=== PATIENT | male | born 1965 | race African-American/Black ===

== ENCOUNTER 2017-06-17 14:52 | Inpatient (IN) | payer OTHER ==
[2017-06-17 16:26] VITALS: BMI 25.9
--- NOTE | 2017-06-17 23:07 | HP ---
COWS - Scale Resting Pulse: 0= [place] 80 or Below Sweatin= Chills/Flushing Restless Observation: 1= Difficult to Sit Still Pupil Size: 0= Normal to Room Light Bone or Joint Aches: 4=Acute Joint/Muscle Pain Runny Nose/ Eye Tearin= Runny Nose/Eyes GI Upset > 30mins: 2= Nausea/Diarrhea (diarrhea x 3) Tremor Observation: 2= Slight Tremor Visible Yawning Observation: 0= None Anxiety or Irritability: 4=Extreme Anxiety Goose Flesh Skin: 0=Smooth Skin COWS Score: 16 CIWA Score - CIWA Score Nausea/Vomitin Muscle Tremors: 3 Anxiety: 4-Mod. Anxious/Guarded Agitation: 0-Normal Activity Paroxysmal Sweats: 3 Orientation: 0-Oriented Tacttile Disturbances: 0-None Auditory Disturbances: 0-None Visual Disturbances: 0-None Headache: 4-Moderately Severe CIWA-Ar Total Score: 16 Admission ROS S - HPI Chief Complaint: Heroin and alcohol withdrawal symptoms Allergies/Adverse Reactions: Allergies Allergy/AdvReac Type Severity Reaction Status Date / Time banana Allergy Mild Nausea Verified 06/17/17 17:42 Fish Containing Products Allergy Verified 06/17/17 17:42 mayonnaise Allergy Verified 06/17/17 17:42 History of Present Illness: 51 years old male with a long history of heroine and alcohol dependence is seeking admission to detox. Patient has been in previous detox at [facility] and reports insignificant period of sobriety. He denies past medical history and suicidal ideation at this time. Exam Limitations: No Limitations - Ebola screening Have you traveled outside of the country in the last 21 days: No (N) Have you had contact with anyone from an Ebola affected area: No Have you been sick,other than usual withdrawal symptoms: No Do you have a fever: No - Review of Systems Constitutional: Loss of Appetite, Malaise, Night Sweats, Changes in sleep EENT: reports: No Symptoms Reported, Other (use glasses) Respiratory: reports: No Symptoms reported Cardiac: reports: No Symptoms Reported GI: reports: Poor Appetite, Poor Fluid Intake, Abdominal cramping : reports: No Symptoms Reported Musculoskeletal: reports: Back Pain, Muscle Pain Integumentary: reports: Dryness, Flushing Neuro: reports: Tingling, Tremors Endocrine: reports: No Symptoms Reported Hematology: reports: No Symptoms Reported Psychiatric: reports: Orientated x3, Anxious Other Systems: Reviewed and Negative Patient History - Patient Medical History Hx Anemia: No Hx Asthma: No Hx Chronic Obstructive Pulmonary Disease (COPD): No Hx Cancer: No Hx Cardiac Disorders: No Hx Congestive Heart Failure: No Hx Hypertension: No Hx Hypercholesterolemia: No HX Cerebrovascular Accident: No Hx Seizures: No Hx Dementia: No Hx Diabetes: No Hx Gastrointestinal Disorders: No Hx Liver Disease: No Hx Genitourinary Disorders: No Hx Sexually Transmitted Disorders: No Hx Renal Disease (ESRD): No Hx Thyroid Disease: No Hx Human Immunodeficiency Virus (HIV): No (Negative 2014) Hx Hepatitis C: No Hx Depression: No Hx Suicide Attempt: No Hx Bipolar Disorder: No Hx Schizophrenia: No - Patient Surgical History Past Surgical History: Yes Hx Neurologic Surgery: No Hx Cataract Extraction: No Hx Cardiac Surgery: No Hx Lung Surgery: No Hx Abdominal Surgery: No Hx Appendectomy: No Hx Cholecystectomy: No Hx Genitourinary Surgery: No Hx Orthopedic Surgery: Yes (SURGERY ON HIS BACK ABOUT 5 YEARS AGO) Anesthesia Reaction: No - PPD History Previous Implant?: No Documented Results: Negative w/o proof Implanted On Prior [facility] Admission?: No PPD to be Administered?: Yes - Reproductive History Patient is a Female of Child Bearing Age (11 -55 yrs old): No (MALE) - Smoking Cessation Smoking history: Current every day smoker Have you smoked in the past 12 months: Yes Aproximately how many cigarettes per day: 20 Hx Chewing Tobacco Use: No Initiated information on smoking cessation: Yes 'Breaking Loose' booklet given: 06/17/17 - Substance & Tx. History Hx Alcohol Use: Yes Hx Substance Use: Yes Substance Use Type: Alcohol, Cocaine, Heroin Hx Substance Use Treatment: Yes ([facility]) - Substances Abused Alcohol Route: Oral Frequency: Daily Amount used: 3 PINTS OF VODKA AND GIN, Age of first use: 19 Date of Last Use: 06/17/17 Heroin Route: Inhalation Frequency: Daily Amount used: 2 BUNDLES DAILY Age of first use: 31 Date of Last Use: 06/17/17 Cocaine Route: Smoking Frequency: Daily Amount used: 6-7 BOTTLES DAILY Age of first use: 22 Date of Last Use: 06/16/17 Family Disease History - Family Disease History Family History: Denies Admission Physical Exam BHS - Vital Signs Vital Signs: Vital Signs - 24 hr 06/17/17 16:24 Temperature 97.8 F Pulse Rate 75 Respiratory 20 Rate Blood Pressure 149/78 - Physical General Appearance: Yes: Moderate Distress HEENTM: Yes: EOMI, Normal Voice, Pale Conjunctivae L Respiratory: Yes: Lungs Clear, Normal Breath Sounds, No Respiratory Distress Neck: Yes: Supple Breast: Yes: Breast Exam Deferred Cardiology: Yes: Regular Rhythm, Regular Rate, S1, S2 Abdominal: Yes: Normal Bowel Sounds Genitourinary: Yes: Within Normal Limits Back: Yes: Normal Inspection Musculoskeletal: Yes: Back pain, Muscle Pain Extremities: Yes: Tremors Neurological: Yes: Alert, Normal Mood/Affect Integumentary: Yes: Dry Lymphatic: Yes: Within Normal Limits - Diagnostic (1) Alcohol dependence with uncomplicated withdrawal Current Visit: Yes Status: Chronic (2) Nicotine dependence Current Visit: Yes Status: Chronic Qualifiers: Nicotine product type: cigarettes (3) Opioid dependence with withdrawal Current Visit: Yes Status: Chronic Cleared for Admission [facility] - Detox or Rehab [facility] Level of Care: Medically Managed Detox Regimen/Protocol: Methadone/Librium [facility] Breath Alcohol Content Breath Alcohol Content: 0.050 Urine Drug Screen - Results Drug Screen Negative: No Urine Drug Screen Results: MEY-Cocaine, OPI-Opiates
[2017-06-18] MEDS ORDERED: MAGNESIUM HYDROX 2400MG/30ML ORAL SUSPENSION 30 ML CUP PO PRN (01:54)
[2017-06-18] MEDS ORDERED: LOPERAMIDE HCL 2 MG CAPSULE PO PRN (01:54)
[2017-06-18] MEDS ORDERED: MENTHOL/PHENOL 1 EACH UD MM PRN (01:54)
[2017-06-18] MEDS ORDERED: guaiFENesin/D-METHORPHAN HB 10 ML UNIT-DOSE CUPS PO PRN (01:54)
[2017-06-18] MEDS ORDERED: METHADONE HCL 10 MG TABLET (FOR DETOX USE ONLY) PO ONE ×3 (01:54→22:00)
[2017-06-18] MEDS ORDERED: ACETAMINOPHEN 325 MG TABLET (FP) PO PRN (01:54)
[2017-06-18] MEDS ORDERED: MAGNESIUM CITRATE 300 ML BOTTLE PO PRN (01:54)
[2017-06-18] MEDS ORDERED: NICOTINE POLACRILEX 2 MG GUM BC PRN (01:54)
[2017-06-18] MEDS ORDERED: MAG HYDROX/AL HYDROX/SIMETH 30 ML UNIT-DOSE CUP PO PRN (01:54)
[2017-06-18] MEDS ORDERED: P-EPHED 60MG/TRIPROLIDI 2.5MG TABLET PO PRN (01:54)
[2017-06-18] MEDS: chlordiazePOXIDE HCL 25 MG CAPSULE PO PRN (02:15)
[2017-06-18] MEDS: chlordiazePOXIDE HCL 25 MG CAPSULE PO SCH ×4 (05:27→22:22)
--- NOTE | 2017-06-18 09:22 | EKG ---
Test Reason : Blood Pressure : / mmHG Vent. Rate : 052 BPM Atrial Rate : 058 BPM P-R Int : 182 ms QRS Dur : 100 ms QT Int : 430 ms P-R-T Axes : 033 048 036 degrees QTc Int : 399 ms SINUS BRADYCARDIA WITH SINUS ARRHYTHMIA VOLTAGE CRITERIA FOR LEFT VENTRICULAR HYPERTROPHY ABNORMAL ECG NO PREVIOUS ECGS AVAILABLE Confirmed by NATALIE MERINO MD ([id number]) on 06/18/2017 9:22:12 AM Referred By: Confirmed By:NATALIE MERINO MD
[2017-06-18] MEDS ORDERED: CYCLOBENZAPRINE HCL 10 MG TABLET (FP) PO PRN (10:06)
[2017-06-18] MEDS: PRENATAL VITAMINS W/ FOLIC ACID TABLET (FP) PO SCH (10:10)
[2017-06-18] MEDS: NICOTINE 14 MG/24 HOURS TOPICAL PATCH TD SCH (10:11)
[2017-06-18] MEDS: cloNIDine HCL 0.1 MG TABLET PO SCH ×2 (10:20→22:22)
--- NOTE | 2017-06-18 13:20 | PN ---
[facility] CIWA - CIWA Score Nausea/Vomitin Muscle Tremors: 3 Anxiety: 3 Agitation: 2 Paroxysmal Sweats: 1-Minimal Palms Moist Orientation: 0-Oriented Tacttile Disturbances: 1-Very Mild Itch/Numbness Auditory Disturbances: 1-Very Mild Visual Disturbances: 0-None Headache: 2-Mild CIWA-Ar Total Score: 16 BHS COWS - Scale Resting Pulse: 0= [place] 80 or Below Sweatin= Chills/Flushing Restless Observation: 3= Extraneous Movement Pupil Size: 1= Pupils >than Normal Bone or Joint Aches: 2= Severe Diffuse Aches Runny Nose/ Eye Tearin= Nasal Congestion GI Upset > 30mins: 2= Nausea/Diarrhea Tremor Observation of Outstretched Hands: 2= Slight Tremor Visible Yawning Observation: 2= >3x During Session Anxiety or Irritability: 2=Irritable/Anxious Goose Flesh Skin: 0=Smooth Skin COWS Score: 16 S Progress Note (SOAP) Subjective: ALERT,IRRITABLE,ANXIOUS,INTERRUPTED SLEEP,TREMOR,PAIN IN THE BODY AND BACK, Objective: 06/18/17 13:18 Vital Signs Temperature 98.9 F 06/18/17 09:22 Pulse Rate 46 L 06/18/17 09:22 Respiratory Rate 20 06/18/17 09:22 Blood Pressure 172/100 06/18/17 09:22 O2 Sat by Pulse Oximetry (%) EKG SINUS BRADYCARDIA 42/MIN,PROLONG QT 454/379 LVH NO CHEST PAIN,NO SOB,NO DIZZINESS LABS PENDING Assessment: 06/18/17 13:20 WITHDRAWAL SYMPTOM Plan: CONTINUE DETOX
--- NOTE | 2017-06-18 15:38 | EKG ---
Test Reason : Blood Pressure : / mmHG Vent. Rate : 042 BPM Atrial Rate : 042 BPM P-R Int : 188 ms QRS Dur : 104 ms QT Int : 454 ms P-R-T Axes : 031 039 029 degrees QTc Int : 379 ms MARKED SINUS BRADYCARDIA MINIMAL VOLTAGE CRITERIA FOR LVH, MAY BE NORMAL VARIANT ABNORMAL ECG WHEN COMPARED WITH ECG OF 18-JUN-2017 02:16, NO SIGNIFICANT CHANGE WAS FOUND Confirmed by WILBER FIGUEROA, NATALIE ([id number]) on 06/18/2017 3:37:49 PM Referred By: Confirmed By:NATALIE MERINO MD
[2017-06-18] MEDS ORDERED: MELATONIN 5 MG TABLETS PO PRN (22:00)
[2017-06-18] MEDS: THIAMINE HCL 100 MG TABLET (FP) PO SCH (22:22)
[2017-06-19] MEDS: chlordiazePOXIDE HCL 25 MG CAPSULE PO SCH ×4 (05:19→22:07)
[2017-06-19] MEDS ORDERED: METHADONE HCL 10 MG TABLET (FOR DETOX USE ONLY) PO SCH (10:00)
[2017-06-19 10:14] LABS: HEMATOCRIT 36.2 % (35.4-49); HEMOGLOBIN 12.4 GM/dL (11.7-16.9); MCH 30.5 pg (25.7-33.7); MCHC 34.2 g/dl (32.0-35.9); MEAN CELL VOLUME 89.4 fl (80-96); MEAN PLT VOLUME 8.8 fl (7.5-11.1); PLATELET COUNT 149 K/MM3 (134-434); RBC 4.05 M/mm3 (4.00-5.60); RDW 14.2 % (11.9-15.9); WHITE BLOOD COUNT 5.5 K/mm3 (4.0-10.0)
[2017-06-19 10:22] LABS: ALBUMIN 3.1 g/dl (3.4-5.0); ANION GAP 6 (8-16); BILIRUBIN,TOTAL 0.2 mg/dL (0.2-1.0); BLOOD UREA NITROGEN 10 mg/dL (7-18); CALCIUM 8.7 mg/dL (8.5-10.1); CHLORIDE 102 mmol/L (98-107); CO2 31 mmol/L (21-32); GLUCOSE,RANDOM 93 mg/dL (74-106); POTASSIUM 3.5 mmol/L (3.5-5.1); SGOT/AST 19 U/L (15-37); SGPT/ALT 21 U/L (12-78); SODIUM 139 mmol/L (136-145)
[2017-06-19 10:23] LABS: ALK PHOS 66 U/L (45-117); CREATININE 0.8 mg/dL (0.7-1.3); TOT PROT 6.7 g/dl (6.4-8.2)
[2017-06-19] MEDS ORDERED: ONDANSETRON *ODT* 4 MG TABLET SL PRN (10:41)
[2017-06-19] MEDS: cloNIDine HCL 0.1 MG TABLET PO SCH ×2 (10:49→22:07)
[2017-06-19] MEDS: PRENATAL VITAMINS W/ FOLIC ACID TABLET (FP) PO SCH (10:49)
[2017-06-19] MEDS: NICOTINE 14 MG/24 HOURS TOPICAL PATCH TD SCH (10:50)
[2017-06-19 13:04] LABS: URINE APPEARANCE CLEAR; URINE BILIRUBIN NEGATIVE (<2.0 mg/dL); URINE COLOR YELLOW; URINE GLUCOSE (UA) 1+ (NEGATIVE); URINE KETONE NEGATIVE (NEGATIVE); URINE LEUK ESTERASE NEGATIVE (NEGATIVE); URINE NITRITE NEGATIVE (NEGATIVE); URINE PROTEIN NEGATIVE (NEGATIVE); URINE UROBILINOGEN NEGATIVE mg/dL (0.2-1.0)
--- NOTE | 2017-06-19 13:42 | PN ---
S CIWA - CIWA Score Nausea/Vomitin Muscle Tremors: 4-Moderate,w/Arms Extend Anxiety: 3 Agitation: 3 Paroxysmal Sweats: 3 Orientation: 0-Oriented Tacttile Disturbances: 1-Very Mild Itch/Numbness Auditory Disturbances: 0-None Visual Disturbances: 0-None Headache: 1-Very Mild CIWA-Ar Total Score: 18 BHS COWS - Scale Resting Pulse: 0= [place] 80 or Below Sweatin= Chills/Flushing Restless Observation: 3= Extraneous Movement Pupil Size: 0= Normal to Room Light Bone or Joint Aches: 2= Severe Diffuse Aches Runny Nose/ Eye Tearin= Runny Nose/Eyes GI Upset > 30mins: 2= Nausea/Diarrhea Tremor Observation of Outstretched Hands: 2= Slight Tremor Visible Yawning Observation: 1= 1-2x During Session Anxiety or Irritability: 2=Irritable/Anxious Goose Flesh Skin: 0=Smooth Skin COWS Score: 15 S Progress Note (SOAP) Subjective: Stomach ache, chills, tremor, n/v/d Objective: 06/19/17 13:38 Last Vital Signs Temp Pulse Resp BP Pulse Ox 97.7 F 49 L 16 114/67 06/19/17 09:44 06/19/17 09:44 06/19/17 09:44 06/19/17 09:44 Noted with bradycardia (patient stated he was athletic until 1-2 years ago and always have low pulse, denies feeling lightheaded or dizzy) Laboratory Tests 06/19/17 06/19/17 06/19/17 08:00 08:00 08:00 WBC 5.5 RBC 4.05 Hgb 12.4 Hct 36.2 MCV 89.4 MCH 30.5 MCHC 34.2 RDW 14.2 Plt Count 149 MPV 8.8 Sodium 139 Potassium 3.5 Chloride 102 Carbon Dioxide 31 Anion Gap 6 L BUN 10 Creatinine 0.8 Creat Clearance w eGFR > 60 Random Glucose 93 Calcium 8.7 Total Bilirubin 0.2 AST 19 ALT 21 Alkaline Phosphatase 66 Total Protein 6.7 Albumin 3.1 L Urine Color Urine Appearance Urine pH Ur Specific [place] Urine Protein Urine Glucose (UA) Urine Ketones Urine Blood Urine Nitrite Urine Bilirubin Urine Urobilinogen Ur Leukocyte Esterase RPR Titer HIV 1&2 Antibody Screen Negative HIV P24 Antigen Negative 06/19/17 06/19/17 08:00 08:15 WBC RBC Hgb Hct MCV MCH MCHC RDW Plt Count MPV Sodium Potassium Chloride Carbon Dioxide Anion Gap BUN Creatinine Creat Clearance w eGFR Random Glucose Calcium Total Bilirubin AST ALT Alkaline Phosphatase Total Protein Albumin Urine Color Yellow Urine Appearance Clear Urine pH 6.0 Ur Specific [place] 1.018 Urine Protein Negative Urine Glucose (UA) 1+ H Urine Ketones Negative Urine Blood Negative Urine Nitrite Negative Urine Bilirubin Negative Urine Urobilinogen Negative Ur Leukocyte Esterase Negative RPR Titer Nonreactive HIV 1&2 Antibody Screen HIV P24 Antigen Labs reviewed Assessment: 06/19/17 13:42 Withdrawal symptoms Noted to be bradycardic Plan: Continue detox Bradycardia: asymptomatic, encouraged to ambulate more and drink more water, follow up with your PCP post discharge
--- NOTE | 2017-06-19 14:19 | CONSULT ---
[facility] Psychiatric Consult - Data Date of interview: 06/19/17 Admission source: Self-referred Identifying data: Patient is a 51 y/o single unemployed, homeless, SSI recipient Substance Abuse History: He has a long standing history of ETOH, Heroin , and several past [facility] treatment. ( see counselor note for more detailed substance use disorder history) Medical History: Denies active medical problem, past back surgery 2012 Psychiatric History: Denies prior psychiatric history, denies depression, psychosis, mood swings or suicide ideation Physical/Sexual Abuse/Trauma History: Denies history of abuse or trauma Mental Status Exam - Mental Status Exam Alert and Oriented to: Place, Person Cognitive Function: Grossly Intact Patient Appearance: Well Groomed Mood: Euthymic Affect: Appropriate Patient Behavior: Cooperative Speech Pattern: Clear Voice Loudness: Normal Thought Process: Intact Thought Disorder: Not Present Hallucinations: None Suicidal Ideation: None Homicidal Ideation: None Insight/Judgement: Poor Sleep: Poorly Appetite: Fair Muscle strength/Tone: Normal Gait/Station: Normal Psychiatric Findings - Problem List ([place] 1, 2,3) (1) Alcohol dependence with uncomplicated withdrawal Current Visit: Yes Status: Acute (2) Opioid dependence with withdrawal Current Visit: Yes Status: Acute (3) Cocaine dependence Current Visit: Yes Status: Acute (4) Nicotine dependence Current Visit: Yes Status: Chronic Qualifiers: Nicotine product type: cigarettes
[2017-06-19] MEDS: THIAMINE HCL 100 MG TABLET (FP) PO SCH (22:07)
[2017-06-19] MEDS: IBUPROFEN 400 MG TABLET (FP) PO PRN (22:14)
[2017-06-20] MEDS: chlordiazePOXIDE 5 MG CAPSULE PO SCH ×4 (05:24→22:06)
--- NOTE | 2017-06-20 09:24 | PN ---
S Progress Note (SOAP) Subjective: ALERT,IRRITABLE,ANXIOUS,INTERRUPTED SLEEP,PAIN IN THE BODY AND BACK Objective: 06/20/17 09:23 Vital Signs Temperature 96.1 F L 06/20/17 07:12 Pulse Rate 44 L 06/20/17 07:12 Respiratory Rate 20 06/20/17 07:12 Blood Pressure 152/84 06/20/17 07:12 O2 Sat by Pulse Oximetry (%) Assessment: 06/20/17 09:24 WITHDRAWAL SYMPTOM Plan: CONTINE DETOX
[2017-06-20] MEDS: METHADONE HCL 5 MG TABLET (FOR DETOX USE ONLY) PO SCH (10:16)
[2017-06-20] MEDS: cloNIDine HCL 0.1 MG TABLET PO SCH ×2 (10:16→22:06)
[2017-06-20] MEDS: PRENATAL VITAMINS W/ FOLIC ACID TABLET (FP) PO SCH (10:16)
[2017-06-20] MEDS: NICOTINE 14 MG/24 HOURS TOPICAL PATCH TD SCH (10:17)
[2017-06-20] MEDS: chlordiazePOXIDE HCL 25 MG CAPSULE PO PRN (13:29)
[2017-06-20] MEDS: IBUPROFEN 400 MG TABLET (FP) PO PRN (14:27)
[2017-06-20] MEDS ORDERED: MELATONIN 5 MG TABLETS PO SCH (22:00)
[2017-06-20] MEDS: THIAMINE HCL 100 MG TABLET (FP) PO SCH (22:06)
[2017-06-21] MEDS: chlordiazePOXIDE HCL 10 MG CAPSULE PO SCH ×2 (05:14→10:58)
[2017-06-21 08:46] VITALS: BP 121/74; PULSE 66; TEMP 96.7
--- NOTE | 2017-06-21 10:16 | PN ---
S Progress Note (SOAP) Subjective: ALERT,IRRITABLE,ANXIOUS,INTERRUPTED SLEEP Objective: 06/21/17 10:15 Vital Signs Temperature 96.7 F L 06/21/17 08:46 Pulse Rate 66 06/21/17 08:46 Respiratory Rate 18 06/21/17 08:46 Blood Pressure 121/74 06/21/17 08:46 O2 Sat by Pulse Oximetry (%) Assessment: 06/21/17 10:15 WITHDRAWAL SYMPTOM Plan: CONTINUE DETOX,DISCHARGE IN AM
[2017-06-21] MEDS: cloNIDine HCL 0.1 MG TABLET PO SCH (10:58)
[2017-06-21] MEDS: METHADONE HCL 5 MG TABLET (FOR DETOX USE ONLY) PO SCH (10:58)
[2017-06-21] MEDS: PRENATAL VITAMINS W/ FOLIC ACID TABLET (FP) PO SCH (10:59)
[2017-06-21] MEDS: NICOTINE 14 MG/24 HOURS TOPICAL PATCH TD SCH (10:59)
--- NOTE | 2017-06-21 12:54 | PN ---
[facility] Progress Note Note: patient is stable for discharge today,would like to be discharged
--- NOTE | 2017-06-21 12:58 | DS ---
[facility] Detox Discharge Summary Admission Date: 06/17/17 Discharge Date: 06/21/17 - History Present History: Alcohol Dependence, Cocaine Dependence, Opioid Dependence Pertinent Past History: stable for discharge today,follow up with after care program as arrangement - Physical Exam Results Vital Signs: Vital Signs Temperature 96.7 F L 06/21/17 08:46 Pulse Rate 66 06/21/17 08:46 Respiratory Rate 18 06/21/17 08:46 Blood Pressure 121/74 06/21/17 08:46 O2 Sat by Pulse Oximetry (%) Pertinent Admission Physical Exam Findings: withdrawal sign and symptom Vital Signs Temperature 96.7 F L 06/21/17 08:46 Pulse Rate 66 06/21/17 08:46 Respiratory Rate 18 06/21/17 08:46 Blood Pressure 121/74 06/21/17 08:46 O2 Sat by Pulse Oximetry (%) Laboratory Last Values WBC 5.5 K/mm3 (4.0-10.0) 06/19/17 08:00 RBC 4.05 M/mm3 (4.00-5.60) 06/19/17 08:00 Hgb 12.4 GM/dL (11.7-16.9) 06/19/17 08:00 Hct 36.2 % (35.4-49) 06/19/17 08:00 MCV 89.4 fl (80-96) 06/19/17 08:00 MCH 30.5 pg (25.7-33.7) 06/19/17 08:00 MCHC 34.2 g/dl (32.0-35.9) 06/19/17 08:00 RDW 14.2 % (11.9-15.9) 06/19/17 08:00 Plt Count 149 K/MM3 (134-434) 06/19/17 08:00 MPV 8.8 fl (7.5-11.1) 06/19/17 08:00 Sodium 139 mmol/L (136-145) 06/19/17 08:00 Potassium 3.5 mmol/L (3.5-5.1) 06/19/17 08:00 Chloride 102 mmol/L (98-107) 06/19/17 08:00 Carbon Dioxide 31 mmol/L (21-32) 06/19/17 08:00 Anion Gap 6 (8-16) L 06/19/17 08:00 BUN 10 mg/dL (7-18) 06/19/17 08:00 Creatinine 0.8 mg/dL (0.7-1.3) 06/19/17 08:00 Creat Clearance w eGFR > 60 (>60) 06/19/17 08:00 Random Glucose 93 mg/dL (74-106) 06/19/17 08:00 Calcium 8.7 mg/dL (8.5-10.1) 06/19/17 08:00 Total Bilirubin 0.2 mg/dL (0.2-1.0) 06/19/17 08:00 AST 19 U/L (15-37) 06/19/17 08:00 ALT 21 U/L (12-78) 06/19/17 08:00 Alkaline Phosphatase 66 U/L (45-117) 06/19/17 08:00 Total Protein 6.7 g/dl (6.4-8.2) 06/19/17 08:00 Albumin 3.1 g/dl (3.4-5.0) L 06/19/17 08:00 Urine Color Yellow 06/19/17 08:15 Urine Appearance Clear 06/19/17 08:15 Urine pH 6.0 (5.0-8.0) 06/19/17 08:15 Ur Specific [place] 1.018 (1.001-1.035) 06/19/17 08:15 Urine Protein Negative (NEGATIVE) 06/19/17 08:15 Urine Glucose (UA) 1+ (NEGATIVE) H 06/19/17 08:15 Urine Ketones Negative (NEGATIVE) 06/19/17 08:15 Urine Blood Negative (NEGATIVE) 06/19/17 08:15 Urine Nitrite Negative (NEGATIVE) 06/19/17 08:15 Urine Bilirubin Negative (<2.0 mg/dL) 06/19/17 08:15 Urine Urobilinogen Negative mg/dL (0.2-1.0) 06/19/17 08:15 Ur Leukocyte Esterase Negative (NEGATIVE) 06/19/17 08:15 RPR Titer Nonreactive (NONREACTIVE) 06/19/17 08:00 HIV 1&2 Antibody Screen Negative 06/19/17 08:00 HIV P24 Antigen Negative 06/19/17 08:00 - Treatment Hospital Course: Detox Protocol Followed, Detoxed Safely, Responded well, Discharged Condition Good Patient has Accepted a Rehab Referral to: declined - Medication Discharge Medications: Ambulatory Orders NK [No Known Home Medication] 06/17/17 - Diagnosis (1) Opioid dependence with withdrawal Status: Acute (2) Alcohol dependence with uncomplicated withdrawal Status: Acute (3) Nicotine dependence Status: Chronic Qualifiers: Nicotine product type: cigarettes (4) Cocaine dependence Status: Acute - AMA Did Patient Leave Against Medical Advice: No
[2017-06-22] MEDS ORDERED: METHADONE HCL 10 MG TABLET (FOR DETOX USE ONLY) PO SCH (10:00)
[2017-06-23] MEDS ORDERED: METHADONE HCL 5 MG TABLET (FOR DETOX USE ONLY) PO SCH (06:00)
== END 2017-06-21 12:35 | disposition home or self-care (01) | DRG 773 ==
LOC: YASAS 14:52 → Y6N 20:19
PROVIDERS: ADMIT Internal Medicine; ATTEND Internal Medicine
PROC: HZ2ZZZZ Detoxification Services for Substance Abuse Treatment (ICD-10-PCS; principal; 2017-06-17)
DX: F11.23 Opioid dependence with withdrawal (principal); F10.230 Alcohol dependence with withdrawal, uncomplicated; F14.20 Cocaine dependence, uncomplicated; F17.210 Nicotine dependence, cigarettes, uncomplicated; R00.1 Bradycardia, unspecified; I45.81 Long QT syndrome; Z91.013 Allergy to seafood; Z59.0 Homelessness
CPT/HCPCS: 36415; 71045-TC-FY; 80053; 81003; 85027; 86593; 87389; 93005; 93010; J0735; Q0162

== ENCOUNTER 2019-03-21 14:25 | Inpatient (IN) | payer OTHER ==
--- NOTE | 2019-03-21 15:04 | BHS.RME ---
Substance Use & Tx History - Substance Use History Opiates (Heroin) Frequency of use: Daily Substance route: Inhalation (ex: sniffing or snorting) Date of Last Use: 03/21/19 (1 bundle) Alcohol Frequency of use: Daily Substance route: Oral Date of Last Use: 03/21/19 (1 pint gin) Nicotine Frequency of use: Daily Substance route: Smoking Date of Last Use: 03/21/19 (1ppd) - Last Treatment Date of last treatment: 2015 Treatment type: Substance Use Disorder (DG) Where was last treatment: Detox Physical/Psych/Mental Status - Behavior General Behavior: Decreased activity Eye Contact: Decreased - Cooperativeness Cooperativeness: Reluctant - Thinking Thought Processes: Loosened Thought content: Suicidal ideation (no plans to hurt himself) - Physical Health Problems Is patient presently having any pain?: Yes (diffuse body ache) Does patient presently have any injuries (include location): No Does patient currently have a fever: No Is patient : No COWS - Scale Resting Pulse: 0= [place] 80 or Below Sweatin= No chills or Flushing Restless Observation: 0= Sits Still Pupil Size: 0= Normal to Room Light Bone or Joint Aches: 2= Severe Diffuse Aches Runny Nose/ Eye Tearin= Nasal Congestion GI Upset > 30mins: 0= None Tremor Observation: 0= None Yawning Observation: 0= None Anxiety or Irritability: 2=Irritable/Anxious Goose Flesh Skin: 0=Smooth Skin COWS Score: 5 CIWA Nausea/Vomitin-No Nausea/No Vomiting Muscle Tremors: None Anxiety: 2 Agitation: 0-Normal Activity Paroxysmal Sweats: No Perspiration Orientation: 1-Uncertain about Date Tacttile Disturbances: 0-None Auditory Disturbances: 0-None Visual Disturbances: 3-Moderate Sensitivity Headache: 2-Mild CIWA-Ar Total Score: 8
[2019-03-21 16:14] VITALS: BMI 26.9
--- NOTE | 2019-03-21 16:35 | HP ---
COWS - Scale Resting Pulse: 0= [place] 80 or Below (Meets admission criteria for detox) Sweatin=Flushed/Facial Moisture Restless Observation: 1= Difficult to Sit Still Pupil Size: 0= Normal to Room Light Bone or Joint Aches: 2= Severe Diffuse Aches Runny Nose/ Eye Tearin= Nasal Congestion GI Upset > 30mins: 0= None Tremor Observation: 2= Slight Tremor Visible Yawning Observation: 0= None Anxiety or Irritability: 2=Irritable/Anxious Goose Flesh Skin: 0=Smooth Skin COWS Score: 10 CIWA Score Nausea/Vomitin-No Nausea/No Vomiting (Meets admission criteria for detox admission) Muscle Tremors: 2 Anxiety: 2 Agitation: 1-Slight > Activity Paroxysmal Sweats: 1-Minimal Palms Moist Orientation: 1-Uncertain about Date Tacttile Disturbances: 0-None Auditory Disturbances: 0-None Visual Disturbances: 3-Moderate Sensitivity Headache: 2-Mild CIWA-Ar Total Score: 12 - Admission Criteria [facility]AS[facility] Guidelines: Admission for Medically Managed Detox: Requires at least one of the followin. CIWA greater than 12 2. Seizures within the past 24 hours 3. Delirium tremens within the past 24 hours 4. Hallucinations within the past 24 hours 5. Acute intervention needed for co occurring medical disorder 6. Acute intervention needed for co occurring psychiatric disorder 7. Severe withdrawal that cannot be handled at a lower level of care (continued vomiting, continued diarrhea, abnormal vital signs) requiring intravenous medication and/or fluids 8. Admitting History and Physical - Admission History of Present Illness: This is a 53 year old male with PMH of HTN. He presents to the clinic for detoxification from alcohol and heroin. Started drinking 30 years ago, drinks 1L of liquor a day, last drink this morning, 1 pint of liquor. Endorses blacking out but does not remember the last time it happened. No history of seizures. Started using Heroin 4-5 years ago, uses a bundle daily, last used 1 bundle this morning. Only smokes, does not snort or inject. Uses cocaine, does not remember last use. Smokes more than 1ppd PMH: - HTN PSH: - Back surgery, stomach several years ago - Jaw surgery ROS: - Headache, sweating Social: - Homeless and unemployed PMH: - AOX2 - Lungs: decreased B/L - CVS: RRR - Abdomen: Soft, NT, ND - [employer] ENR[employer]ING: Motor 5/5, sensations intact, tremors in hands B/L - Smoking History Smoking history: Current every day smoker Have you smoked in the past 12 months: Yes Aproximately how many cigarettes per day: 20 - Alcohol/Substance Use Hx Alcohol Use: Yes Admission [facility] Allergies/Adverse Reactions: Allergies Allergy/AdvReac Type Severity Reaction Status Date / Time banana Allergy Mild Nausea Verified 03/21/19 16:06 Fish Containing Products Allergy Verified 03/21/19 16:06 mayonnaise Allergy Verified 03/21/19 16:06 Patient History - Patient Medical History Hx Anemia: No Hx Asthma: No Hx Chronic Obstructive Pulmonary Disease (COPD): No Hx Cancer: No Hx Cardiac Disorders: No Hx Congestive Heart Failure: No Hx Hypertension: No Hx Hypercholesterolemia: No HX Cerebrovascular Accident: No Hx Seizures: No Hx Dementia: No Hx Diabetes: No Hx Gastrointestinal Disorders: No Hx Liver Disease: No Hx Genitourinary Disorders: No Hx Sexually Transmitted Disorders: No Hx Renal Disease (ESRD): No Hx Thyroid Disease: No Hx Human Immunodeficiency Virus (HIV): No (Negative 2014) Hx Hepatitis C: No Hx Depression: No Hx Suicide Attempt: No Hx Bipolar Disorder: No Hx Schizophrenia: No - Patient Surgical History Past Surgical History: Yes Hx Neurologic Surgery: No Hx Cataract Extraction: No Hx Cardiac Surgery: No Hx Lung Surgery: No Hx Breast Surgery: No Hx Breast Biopsy: No Hx Abdominal Surgery: No Hx Appendectomy: No Hx Cholecystectomy: No Hx Genitourinary Surgery: No Hx Section: Yes (SURGERY ON HIS BACK ABOUT 5 YEARS AGO) Hx Orthopedic Surgery: Yes (SURGERY ON HIS BACK ABOUT 5 YEARS AGO) Anesthesia Reaction: No - PPD History Date: 06/20/17 - Reproductive History Patient : No - Smoking Cessation Smoking history: Current every day smoker Have you smoked in the past 12 months: Yes Aproximately how many cigarettes per day: 20 Hx Chewing Tobacco Use: No Initiated information on smoking cessation: Yes 'Breaking Loose' booklet given: 03/21/19 - Substances abused Alcohol Substance route: Oral Frequency: Daily Amount used: more a liter of vodka. Age of first use: 21 Date of last use: 03/21/19 Heroin Substance route: Inhalation Frequency: Daily Amount used: 6 bags Age of first use: 31 Date of last use: 03/21/19 Admission Physical Exam BHS - Vital Signs Vital Signs: Vital Signs - 24 hr 03/21/19 16:07 Temperature 98.0 F Pulse Rate 79 Respiratory 18 Rate Blood Pressure 119/78 Breathalyzer - Breathalyzer Breathalyzer: 0.191 Urine Drug Screen - Test Device Lot number: [id number] Expiration date: 01/01/21 - Control Is test valid?: Yes - Results Drug screen NEGATIVE: No Urine drug screen results: MEY-Cocaine, FEN-Fentanyl, MTD-Methadone, BZO- Benzodiazepines Inpatient Rehab Admission - Rehab Decision to Admit Inpatient rehab admission?: No
[2019-03-21] MEDS ORDERED: hydrOXYzine PAMOATE 25 MG CAPSULE (FP) PO PRN (16:48)
[2019-03-21] MEDS ORDERED: MENTHOL/PHENOL 1 EACH UD MM PRN (16:48)
[2019-03-21] MEDS ORDERED: MAGNESIUM CITRATE 300 ML BOTTLE PO PRN (16:48)
[2019-03-21] MEDS ORDERED: chlordiazePOXIDE HCL 25 MG CAPSULE PO PRN (16:48)
[2019-03-21] MEDS ORDERED: MAG HYDROX/AL HYDROX/SIMETH 30 ML UNIT-DOSE CUP PO PRN (16:48)
[2019-03-21] MEDS ORDERED: MAGNESIUM HYDROX 2400MG/30ML ORAL SUSPENSION 30 ML CUP PO PRN (16:48)
[2019-03-21] MEDS ORDERED: METHOCARBAMOL 500 MG TABLET PO PRN (16:48)
[2019-03-21] MEDS ORDERED: cloNIDine HCL 0.1 MG TABLET PO PRN (16:48)
[2019-03-21] MEDS ORDERED: BISMUTH SUBSALICYLATE 524 MG/30 ML UD PO PRN (16:48)
[2019-03-21] MEDS ORDERED: IBUPROFEN 400 MG TABLET (FP) PO PRN (16:48)
[2019-03-21] MEDS ORDERED: ACETAMINOPHEN 325 MG TABLET (FP) PO PRN ×2 (16:48)
[2019-03-21] MEDS ORDERED: METHADONE HCL 10 MG TABLET (FOR DETOX USE ONLY) PO ONE (17:30)
[2019-03-21] MEDS ORDERED: ONDANSETRON 4 MG/2 ML VIAL IM ONE (18:00)
[2019-03-21] MEDS: NICOTINE 21 MG/24 HOURS TOPICAL PATCH TD SCH (18:10)
[2019-03-21] MEDS: chlordiazePOXIDE HCL 25 MG CAPSULE PO SCH ×2 (18:11→22:53)
[2019-03-21] MEDS: THIAMINE HCL 100 MG TABLET (FP) PO SCH (22:50)
[2019-03-21] MEDS: MELATONIN 5 MG TABLETS PO PRN (23:24)
[2019-03-22] MEDS: chlordiazePOXIDE HCL 25 MG CAPSULE PO SCH ×4 (05:32→22:12)
--- NOTE | 2019-03-22 08:45 | PN ---
Teaching Attending Note Name of Resident: Darling Omalley ATTENDING PHYSICIAN STATEMENT I saw and evaluated the patient. I reviewed the resident's note and discussed the case with the resident. I agree with the resident's findings and plan as documented. SUBJECTIVE: OBJECTIVE: ASSESSMENT AND PLAN:
[2019-03-22] MEDS ORDERED: METHADONE HCL 10 MG TABLET (FOR DETOX USE ONLY) ONE (08:47)
[2019-03-22] MEDS ORDERED: METHADONE HCL 5 MG TABLET (FOR DETOX USE ONLY) ONE (08:47)
[2019-03-22] MEDS ORDERED: TRIMETHOBENZAMIDE HCL 200MG/2ML INJ IM ONE (09:15)
--- NOTE | 2019-03-22 09:25 | PN ---
[facility] CIWA - CIWA Score Nausea/Vomitin Muscle Tremors: 3 Anxiety: 2 Agitation: 0-Normal Activity Paroxysmal Sweats: 2 Orientation: 0-Oriented Tacttile Disturbances: 0-None Auditory Disturbances: 0-None Visual Disturbances: 1-Very Mild Sensitivity Headache: 0-None Present CIWA-Ar Total Score: 11 S COWS - Scale Resting Pulse: 0= SC 80 or Below Sweatin= Chills/Flushing (no flushing) Restless Observation: 0= Sits Still Pupil Size: 1= Pupils >than Normal Bone or Joint Aches: 0= None Runny Nose/ Eye Tearin= None GI Upset > 30mins: 3= Vomiting/Diarrhea (no diarrhea) Tremor Observation of Outstretched Hands: 2= Slight Tremor Visible Yawning Observation: 0= None Anxiety or Irritability: 1=Feels Anxious/Irritable Goose Flesh Skin: 3=Piloerection COWS Score: 11 [facility] Progress Note (SOAP) Subjective: 53 years old male admitted on 03/21/19 for alcohol and opiate withdrawal sx management vomited x 1 tigan 200mg IM x 1 discontinue motrin begin pepcid 20mg po bid bentyl 20 mg x 1 Objective: 03/22/19 09:29 Vital Signs Temperature 96.3 F L 03/22/19 08:57 Pulse Rate 70 03/22/19 08:57 Respiratory Rate 18 03/22/19 08:57 Blood Pressure 159/99 03/22/19 08:57 O2 Sat by Pulse Oximetry (%) 03/22/19 09:29 lab pending 03/22/19 09:31 bp elevation clonidine 0.1 mg po prn q6h Assessment: 03/22/19 09:31 alcohol and opiate withdrawal Plan: librium and methadone regiments
[2019-03-22] MEDS ORDERED: DICYCLOMINE HCL 20 MG TABLET PO ONE (09:28)
[2019-03-22 09:43] LABS: HEMATOCRIT 36.2 % (35.4-49); MCH 30.9 pg (25.7-33.7); MCHC 33.1 g/dl (32.0-35.9); MEAN CELL VOLUME 93.2 fl (80-96); MEAN PLT VOLUME 8.8 fl (7.5-11.1); PLATELET COUNT 151 K/MM3 (134-434); RBC 3.88 M/mm3 (4.00-5.60); RDW 13.8 % (11.9-15.9); WHITE BLOOD COUNT 4.7 K/mm3 (4.0-10.0)
[2019-03-22] MEDS ORDERED: cloNIDine HCL 0.1 MG TABLET PO PRN (09:47)
[2019-03-22] MEDS ORDERED: METHADONE (DETOX) 20 MG, METHADONE (DETOX) 5 MG PO ONE (10:00)
[2019-03-22] MEDS ORDERED: PRENATAL VITAMINS W/ FOLIC ACID TABLET (FP) PO SCH (10:00)
[2019-03-22 10:10] LABS: BILIRUBIN,TOTAL 0.4 mg/dL (0.2-1); BLOOD UREA NITROGEN 14.7 mg/dL (7-18); CALCIUM 8.9 mg/dL (8.5-10.1); CREATININE 0.8 mg/dL (0.55-1.3); POTASSIUM 3.9 mmol/L (3.5-5.1); TOT PROT 6.5 g/dl (6.4-8.2)
[2019-03-22] MEDS ORDERED: DICYCLOMINE HCL 10 MG CAPSULE PO ONE (11:15)
[2019-03-22] MEDS: NICOTINE 21 MG/24 HOURS TOPICAL PATCH TD SCH (11:32)
[2019-03-22] MEDS: FAMOTIDINE 20 MG TABLET PO SCH ×2 (11:33→22:12)
[2019-03-22] MEDS ORDERED: PNEUMOC 13-VAL CONJ-DIP CRM/PF 0.5 ML DISP.SYRIN IM ONE (12:00)
[2019-03-22] MEDS ORDERED: PNEUMOCOCCAL 23 VACCINE 0.5 ML VIAL IM ONE (12:00)
[2019-03-22] MEDS ORDERED: FLU VACCINE QUAD 60 MCG/0.5 ML (MDV 19-20) IM ONE (12:00)
--- NOTE | 2019-03-22 15:16 | EKG ---
Test Reason : Blood Pressure : / mmHG Vent. Rate : 085 BPM Atrial Rate : 085 BPM P-R Int : 156 ms QRS Dur : 096 ms QT Int : 372 ms P-R-T Axes : 043 013 015 degrees QTc Int : 442 ms NORMAL SINUS RHYTHM NORMAL ECG WHEN COMPARED WITH ECG OF 18-JUN-2017 08:56, VENT. RATE HAS INCREASED BY 43 BPM QT HAS LENGTHENED Confirmed by YUDY FIGUEROA, AVINASH ([id number]) on 03/22/2019 3:16:42 PM Referred By: Confirmed By:AVINASH JIMENES MD
[2019-03-22] MEDS: THIAMINE HCL 100 MG TABLET (FP) PO SCH (22:12)
[2019-03-22] MEDS: MELATONIN 5 MG TABLETS PO PRN (22:12)
[2019-03-23] MEDS ORDERED: chlordiazePOXIDE HCL 10 MG CAPSULE PO PRN
[2019-03-23] MEDS ORDERED: chlordiazePOXIDE HCL 25 MG CAPSULE PO SCH (05:00)
[2019-03-23 06:02] VITALS: BP 150/96; PULSE 51; TEMP 97.8
--- NOTE | 2019-03-23 08:58 | DS ---
[facility] Detox Discharge Summary Admission Date: 03/21/19 Discharge Date: 03/23/19 - History Present History: Opioid Dependence - Physical Exam Results Vital Signs: Vital Signs Temperature 97.8 F 03/23/19 06:01 Pulse Rate 51 L 03/23/19 06:01 Respiratory Rate 18 03/23/19 06:01 Blood Pressure 150/96 03/23/19 06:01 O2 Sat by Pulse Oximetry (%) Pertinent Admission Physical Exam Findings: Laboratory Last Values WBC 4.7 K/mm3 (4.0-10.0) 03/22/19 07:30 RBC 3.88 M/mm3 (4.00-5.60) L 03/22/19 07:30 Hgb 12.0 GM/dL (11.7-16.9) 03/22/19 07:30 Hct 36.2 % (35.4-49) 03/22/19 07:30 MCV 93.2 fl (80-96) 03/22/19 07:30 MCH 30.9 pg (25.7-33.7) 03/22/19 07:30 MCHC 33.1 g/dl (32.0-35.9) 03/22/19 07:30 RDW 13.8 % (11.9-15.9) 03/22/19 07:30 Plt Count 151 K/MM3 (134-434) 03/22/19 07:30 MPV 8.8 fl (7.5-11.1) 03/22/19 07:30 Sodium 139 mmol/L (136-145) 03/22/19 07:30 Potassium 3.9 mmol/L (3.5-5.1) 03/22/19 07:30 Chloride 104 mmol/L (98-107) 03/22/19 07:30 Carbon Dioxide 29 mmol/L (21-32) 03/22/19 07:30 Anion Gap 5 MMOL/L (8-16) L 03/22/19 07:30 BUN 14.7 mg/dL (7-18) 03/22/19 07:30 Creatinine 0.8 mg/dL (0.55-1.3) 03/22/19 07:30 Est GFR (CKD-EPI)AfAm 119.04 03/22/19 07:30 Est GFR (CKD-EPI)NonAf 102.71 03/22/19 07:30 Random Glucose 89 mg/dL (74-106) 03/22/19 07:30 Calcium 8.9 mg/dL (8.5-10.1) 03/22/19 07:30 Total Bilirubin 0.4 mg/dL (0.2-1) 03/22/19 07:30 AST 17 U/L (15-37) 03/22/19 07:30 ALT 21 U/L (13-61) 03/22/19 07:30 Alkaline Phosphatase 68 U/L (45-117) 03/22/19 07:30 Total Protein 6.5 g/dl (6.4-8.2) 03/22/19 07:30 Albumin 3.0 g/dl (3.4-5.0) L 03/22/19 07:30 RPR Titer Nonreactive (NONREACTIVE) 03/22/19 07:30 Vital Signs Temperature 97.8 F 03/23/19 06:01 Pulse Rate 51 L 03/23/19 06:01 Respiratory Rate 18 03/23/19 06:01 Blood Pressure 150/96 03/23/19 06:01 O2 Sat by Pulse Oximetry (%) PE Gnl: wdwn, in no distress MS: awake, alert, insists on leaving Motor: gait steady - Treatment Hospital Course: Detox Protocol Followed, Discharged Condition Good - Medication Discharge Medications: Ambulatory Orders NK [No Known Home Medication] 06/17/17 - AMA Did Patient Leave Against Medical Advice: Yes (discussed with pt the importance of completing detox. He insists on leaving)
[2019-03-23] MEDS ORDERED: METHADONE HCL 10 MG TABLET (FOR DETOX USE ONLY) PO ONE (10:00)
[2019-03-24] MEDS ORDERED: chlordiazePOXIDE HCL 10 MG CAPSULE PO SCH (05:00)
[2019-03-24] MEDS ORDERED: METHADONE (DETOX) 10 MG, METHADONE (DETOX) 5 MG PO ONE (10:00)
[2019-03-25] MEDS ORDERED: chlordiazePOXIDE HCL 10 MG CAPSULE PO SCH (05:00)
[2019-03-25] MEDS ORDERED: METHADONE HCL 10 MG TABLET (FOR DETOX USE ONLY) PO ONE (10:00)
[2019-03-26] MEDS ORDERED: chlordiazePOXIDE HCL 10 MG CAPSULE PO ONE (05:00)
[2019-03-26] MEDS ORDERED: METHADONE HCL 5 MG TABLET (FOR DETOX USE ONLY) PO ONE (06:00)
== END 2019-03-23 09:14 | disposition home or self-care (01) | DRG 773 ==
LOC: YASAS 14:25 → Y3N 16:46
PROVIDERS: ADMIT Allergy & Immunology; ATTEND Allergy & Immunology
PROC: HZ2ZZZZ Detoxification Services for Substance Abuse Treatment (ICD-10-PCS; principal; 2019-03-21)
DX: F10.230 Alcohol dependence with withdrawal, uncomplicated (principal); F11.23 Opioid dependence with withdrawal; F17.210 Nicotine dependence, cigarettes, uncomplicated; I10 Essential (primary) hypertension; Z91.013 Allergy to seafood; Z91.018 Allergy to other foods; Z59.0 Homelessness
CPT/HCPCS: 36415; 80053; 85027; 86593; 93005; 93010; J0735